=== PATIENT | male | born 1960 | race Caucasian/White ===

== ENCOUNTER → 2019-01-26 | Outpatient (CLI) | payer MEDICARE | LOC: COL.VAS 09:00 | DX: I25.5 Ischemic cardiomyopathy (principal); I08.1 Rheumatic disorders of both mitral and tricuspid valves ==

== ENCOUNTER 2019-02-04 06:26 | Day surgery (SDC) | payer MEDICARE ==
[~2019-02-04] VITALS: Ht 175.4 cm; Wt 95.4 kg
[2019-02-04] VITALS (12 sets, daily range): BP systolic 119–132; BP diastolic 83–91; PULSE 97–102; TEMP 98.3
[2019-02-04 07:08] LABS: HEMATOCRIT 47.7 % (42.0-52.0); HEMOGLOBIN 15.9 g/dl (13.5-18.0); MEAN CELL VOLUME 92 fl (80.0-100.0); MEAN CORPUSCULAR HEMOGLOBIN 31 pg (27.0-31.0); MEAN CORPUSCULAR HGB CONC 33 g/dl (33.0-37.0); MEAN PLATELET VOLUME 11.5 fl (7.4-10.4); PLATELET COUNT 195 K/mm3 (130-400); RED BLOOD COUNT 5.16 M/mm3 (4.20-5.60); REDCELL DISTRIBUTION WIDTH-CV 12.4 % (11.5-14.5)
[2019-02-04 07:11] LABS: INR 1.1 (0.8-3.0); PROTHROMBIN TIME 12.7 SECONDS (9.7-12.8)
[2019-02-04 07:17] LABS: CALCIUM 9.3 mg/dL (8.4-10.2); CREATININE, serum 0.97 (0.66-1.25); POTASSIUM 4.5 mmol/L (3.4-5.0)
[2019-02-04] MEDS ORDERED: LIPITOR 80MG80 MG PO (07:36)
[2019-02-04] MEDS ORDERED: ASPIRIN E.C. 8181 MG PO (07:36)
[2019-02-04] MEDS ORDERED: PLAVIX 75MG TAB75 MG PO (07:37)
[2019-02-04] MEDS ORDERED: LANTUS SOLOS100 U/ML SQ (07:37)
[2019-02-04] MEDS ORDERED: PRINIVIL5 MG PO (07:38)
[2019-02-04] MEDS ORDERED: IMDUR 30MG30 MG/TAB PO (07:38)
[2019-02-04] MEDS ORDERED: NITROSTAT0.4 MG/TAB SL (07:39)
--- NOTE | 2019-02-04 09:05 | NUR ---
ALL MEDICATIONS GIVEN VORB WITH MD. SEE MERGE FOR ALL MEDICATION ADMIN TIMES. SEE MERGE FOR ALL RASS ASSESSMENTS DURING AND POST PROCEDURE.
[2019-02-04] MEDS ORDERED: COREG 3.123.125 MG/T PO (10:01)
[2019-02-04] MEDS ORDERED: ALDACTONE 25MG25 M1 PO (10:02)
--- NOTE | 2019-02-04 10:10 | NUR ---
Pt returned to EU 11 per bed s/p heart cath. Pt resting well.
--- NOTE | 2019-02-04 10:17 | NUR ---
Bedside report given to AFSANEH Beebe. VS stable. Right groin site clean, dry, and intact. Site soft, no oozing, no hematoma noted. Pedal pulses +1 bilaterally. Patient denies any pain at this time. Bed in lowest position, call light within reach.
--- NOTE | 2019-02-04 14:25 | NUR ---
Pt has ambulated, voided and ruperto PO intake s n/v. PIV removed with catheter intact.
--- NOTE | 2019-02-04 14:50 | NUR ---
Pt discharged per w/c by nurse with friend.
== END 2019-02-04 15:52 | disposition home or self-care (01) ==
LOC: COL.CAR 06:26
PROVIDERS: Internal Medicine Cardiovascular Disease
DX: I25.10 Atherosclerotic heart disease of native coronary artery without angina pectoris (principal); R94.39 Abnormal result of other cardiovascular function study; E11.9 Type 2 diabetes mellitus without complications; I25.2 Old myocardial infarction; F17.210 Nicotine dependence, cigarettes, uncomplicated; I10 Essential (primary) hypertension; I25.5 Ischemic cardiomyopathy; Z79.82 Long term (current) use of aspirin; Z79.02 Long term (current) use of antithrombotics/antiplatelets; Z79.4 Long term (current) use of insulin; Z82.49 Family history of ischemic heart disease and other diseases of the circulatory system; E78.2 Mixed hyperlipidemia; Z95.1 Presence of aortocoronary bypass graft
CPT/HCPCS: J1644; J2250; J3010; Q9967